=== PATIENT | male | born 1965 | race Caucasian/White ===

== ENCOUNTER 2024-08-12 09:31 | Emergency (ER) | payer SELFPAY ==
[2024-08-12] VITALS (21 sets, daily range): BP systolic 124–193; BP diastolic 73–156
[~2024-08-12] VITALS: Ht 162.6 cm; Wt 73.0 kg
[2024-08-12] MEDS ORDERED: NALOXONE HCL 0.4 MG/ML 1ML AMP ONE (10:08)
[2024-08-12] MEDS ORDERED: SODIUM CHLORIDE 0.9% 1,000 ML IV ONE (10:11)
[2024-08-12] MEDS ORDERED: NALOXONE HCL 0.4 MG/ML 1ML AMP IV ONE (10:20)
[2024-08-12 10:32] LABS: URINE BLOOD DIPSTICK Negative (NEGATIVE); URINE GLUCOSE - DIPSTICK Negative (NEGATIVE); URINE KETONE Negative (NEGATIVE); URINE LEUK ESTERASE Negative (NEGATIVE); URINE NITRITE - DIPSTICK Negative (Negative); URINE PH 5.5 (4.5-8.0); URINE PROTEIN - DIPSTICK Trace mg/dL (NEG-TRACE); URINE SPECIFIC GRAVITY >=1.030; URINE UROBILINOGEN - DIPSTICK 0.2 E.U./dL (0.2)
[2024-08-12 10:36] LABS: URINE COLOR Yellow
[2024-08-12 10:36] LABS: BASO% 0.3 % (0-3); HEMATOCRIT 44.6 % (39.0-50.0); HEMOGLOBIN 15.2 g/dl (14.0-18.0); IMMATURE GRANULOCYTES 0.1 % (0.0-5.0); LYMPH% 17.7 % (15-41); MEAN CORPUSCULAR HGB 31.3 pG CALC (26.0-32.0); MEAN CORPUSCULAR HGB CONC 34.1 g/dL CAL (32.0-36.0); MONO% 7.8 % (2-13); NEUT# 6.87 thou/uL (1.82-7.42); NEUT% 71.1 % (42-76); RED BLOOD COUNT 4.85 mill/uL (4.70-6.10)
[2024-08-12 11:44] LABS: ALBUMIN 3.8 g/dL (3.2-5.0); BILIRUBIN, TOTAL 0.9 mg/dL (0.2-1.3); CREATININE 0.6 mg/dL (0.7-1.3); POTASSIUM 4.1 mmol/l (3.5-5.1); TOTAL PROTEIN 6.4 g/dL (6.3-8.2)
== END 2024-08-12 16:25 | disposition home or self-care (01) | DRG 914 ==
LOC: ED 09:31
PROVIDERS: Family Medicine
DX: T14.8XXA Other injury of unspecified body region, initial encounter (principal); F15.10 Other stimulant abuse, uncomplicated; R64 Cachexia; F17.210 Nicotine dependence, cigarettes, uncomplicated; V86.55XA Driver of 3- or 4- wheeled all-terrain vehicle (ATV) injured in nontraffic accident, initial encounter
CPT/HCPCS: Q9967